=== PATIENT | male | born 1955 | race Caucasian/White ===

== ENCOUNTER 2017-04-07 01:22 | Emergency (ER) | payer OTHER ==
[~2017-04-07] VITALS: Ht 177.8 cm; Wt 118.8 kg
[~2017-04-07 01:22] MED LIST: ALBUTEROL0.09 MG/A1 INH; CLOPIDOGREL75 MG PO; FUROSEMIDE20 MG PO; HYDRALAZINE HCL25 MG PO; IMDUR60 MG PO; LANTUS SOLOS100 U/ML SC; LOSARTAN POTASS50 MG PO; MEDROL DOSEPAK1 PAC PO; METOPROLOL SUC200 M1 PO; NOVOLOG100 U/ML SC; ROBITUSSIN W/CO10 ML PO; TAMSULOSIN HYD0.4 MG PO; ZITHROMAX Z-PA250 M1 PO; ZOCOR 40MG TAB40 MG PO
--- NOTE | 2017-04-07 01:59 | ED GI/GU/ABDOMINAL COMPLAINT ---
History of Present Illness General Chief Complaint: General Adult Stated Complaint: RIGHT SIDE PAIN, NAUSEA PER PT Source: patient, family, old records Exam Limitations: no limitations Vital Signs & Intake/Output Vital Signs & Intake/Output Vital Signs Date Time Temp Pulse Resp B/P B/P Pulse O2 O2 Flow FiO2 Mean Ox Delivery Rate 04/07 0341 98.8 60 20 140/70 95 Room Air 04/07 0134 98.5 66 20 159/81 97 Room Air Allergies Coded Allergies: MDX - Morphine (SEVERE ABDOMINAL PAIN 04/30/13) SEVERE ABDOMINAL PAIN Reconcile Medications Albuterol Sulfate (Albuterol Sulfate Hfa) 0.09 MG/Actuation MIRZA 2 PUFF INH Q4- 6 PRN PRN SHORTNESS OF BREATH 90 MCG PER PUFF Amoxicillin 875 MG TABLET 1 TAB PO BID colitis Azithromycin (Zithromax Z-Peter) 250 MG CAP 1 DP PO AD BRONCHITIS 2 the first day followed by 1 for days 2-5 CLOPIDOGREL BISULFATE (Clopidogrel) 75 MG TAB 1 TAB PO DAILY BLOOD THINNER ( Reported) Furosemide 20 MG TAB 1 TAB PO DAILY WATER PILL (Reported) HYDRALAZINE HCL (Hydralazine HCl) 25 MG TAB 1 TAB PO BID HEART (Reported) Hyoscyamine Sulfate (Levsin-Sl) 0.125 MG TAB.SUBL 1-2 TAB SL Q4P PRN abdominal cramps Insulin Aspart, Recombinant (Novolog) 100 U/ML MALU 0 UNITS SC TIDAC GLUCOSE CONTROL (Reported) BLOOD SUGAR # OF UNITS < 80 NONE 80-150 NONE 151-200 1 UNIT 201-250 2 UNITS 251-300 3 UNITS 301-350 4 UNITS 351-400 6 UNITS >400 8 UNITS and call Insulin Glargine, Recombinan (Lantus Solostar) 100 U/ML MALU 15 U SC BID DIABETES (Reported) Isosorbide Mononitrate (Imdur) [address]5 TAB PO DAILY HEART (Reported) Losartan Potassium 50 MG TAB 1 TAB PO DAILY HEART (Reported) Methylprednisolone. (Medrol) 1 PAC PAC 1 TAB PO DAILY BRONCHITIS TAKE DIRECTED Metoprolol Succinate (Metoprolol Succinate XL) [address] 1 TAB PO DAILY HEART (Reported) Ondansetron (Zofran Odt) 4 MG TAB.RAPDIS 1 TAB SL TID PRN nausea Robitussin AC (Guaifenesin-Codeine Syrup) 10 ML UDC 5 ML PO Q4-6HR PRN COUGH Simvastatin (Zocor 40MG Tab) 40 MG TAB 1 TAB PO QPM CHOLESTEROL (Reported) TAMSULOSIN HCL (Tamsulosin Hydrochloride) 0.4 MG CAP 1 CAP PO DAILY PROSTATE (Reported) Triage Note: PT FROM HOME WITH C/O RIGHT SIDE ABD PAIN THAT BEGAN APPROX 2100 LAST EVENING. PT REPORTS FEELING NAUSEA BUT NO VOMITING. PT REPORTS PAIN IS 8/10. Triage Nurses Notes Reviewed? yes Onset: Evening Duration: hour(s):, constant, continues in ED Timing: recent history Quality/Severity: dullness, moderate, sharpness, severe Location: right flank Radiation: no radiation Activities at Onset: none Prior Abdominal Problems: none Past Sexual History: Unobtainable at this time Modifying Factors: Worsens With: movement, palpation. Associated Symptoms: abdominal pain, diarrhea, nausea/vomiting HPI: 18 hours prior to admission patient complaints of loose watery stool. 6 hours prior to admission patient complains of moderate to severe right flank pain nonradiating constant solution with nausea vomiting and anorexia. Past History Travel History Traveled to [place] past 21 day No Medical History Any Pertinent Medical History? see below for history Cardiovascular: CABG Musculoskeletal: B/L BKA Endocrine: diabetes History of MRSA: Yes History of VRE: No History of CDIFF: No Surgical History Surgical History: CABG Psychosocial History Who do you live with Patient and family Services at Home None What is your primary language Martiniquais Family History Hx Contributory? No Review of Systems Review of Systems Constitutional: Reports: no symptoms. EENTM: Reports: no symptoms. Respiratory: Reports: no symptoms. Cardiovascular: Reports: no symptoms. GI: Reports: see HPI, abdominal pain, bloating, nausea, vomiting. Genitourinary: Reports: no symptoms. Musculoskeletal: Reports: no symptoms. Skin: Reports: no symptoms. Neurological/Psychological: Reports: no symptoms. Hematologic/Endocrine: Reports: no symptoms. Immunologic/Allergic: Reports: no symptoms. All Other Systems: Reviewed and Negative Physical Exam Physical Exam General Appearance: well developed/nourished, alert, awake, anxious, moderate distress, severe distress, obese Head: atraumatic, normal appearance Eyes: Bilateral: normal appearance, PERRL, EOMI, normal inspection. Ears, Nose, Throat, Mouth: hearing grossly normal, moist mucous membrane Neck: normal inspection, supple, full range of motion, normal alignment Respiratory: normal breath sounds, chest non-tender, no respiratory distress, quiet respiration, lungs clear Cardiovascular: regular rate/rhythm, normal peripheral pulses, norml femoral pulses equa Peripheral Pulses: 4+ carotid (R), 4+ carotid (L) Gastrointestinal: normal bowel sounds, soft, non-tender, no organomegaly Male Genitals: normal genitalia Back: normal inspection, normal range of motion, vertebral tenderness, no vertebral tenderness Extremities: normal range of motion, no ligament instability Neurologic/Psych: no motor/sensory deficits, awake, alert, oriented x 3, normal mood/affect, slitter service and setter II-XII nml as tested Skin: intact, normal color, warm/dry Core Measures ACS in differential dx? No Sepsis Present: No Sepsis Focused Exam Completed? No Progress Differential Diagnosis: bowel obstruction, diverticulitis, pancreatitis, ureterolithiasis, UTI/pyelo Plan of Care: Orders Procedure Date/time Status URINALYSIS 04/07 155 Active LIPASE 04/07 155 Complete COMPREHENSIVE METABOLIC PANEL 04/07 155 Complete CBC WITHOUT DIFFERENTIAL 04/07 155 Complete Current Medications Sig/Duane Start time Last Medication Dose Stop Time Status Admin Ampicillin Sodium/ 3,000 MG ONCE ONE 04/07 0500 AC Sulbactam Sodium 04/07 0529 (Unasyn) Sodium Chloride 100 ML (Normal Saline 0.9%) Laboratory Tests 04/07/17 0210: Anion Gap 15, Estimated GFR 44 L, BUN/Creatinine Ratio 38.1 H, Glucose 276 H, Calcium 9.3, Total Bilirubin 0.8, AST 30, ALT 48, Alkaline Phosphatase 116, Total Protein 6.9, Albumin 3.9, Globulin 3.0, Albumin/Globulin Ratio 1.3, Lipase 79, CBC w Diff NO MAN DIFF REQ, RBC 4.87, MCV 89.9, MCH 29.7, RDW 13.4, MPV 9.8, Gran % 89.1 H, Lymphocytes % 4.6 L, Monocytes % 5.0, Eosinophils % 1.0, Basophils % 0.3, Absolute Granulocytes 8.4 H, Absolute Lymphocytes 0.4 L, Absolute Monocytes 0.5, Absolute Eosinophils 0.1, Absolute Basophils 0, PUBS MCHC 33.1 Diagnostic Imaging: Viewed by Me: CT Scan. Discussed w/RAD: CT Scan. Radiology Impression: Wall thickening with inflammation involving the ascending colon, consistent with colitis. Minimal portal venous gas seen within the left lobe of the liver. Initial ED EKG: none Departure Departure Time of Disposition: 454 Disposition: HOME OR SELF CARE Condition: Stable Clinical Impression Primary Impression: Colitis Referrals: Drake ABARCA,Jayme Adan (PCP/Family) Additional Instructions: Clear liquids in small amounts for 12-24 hours until better Departure Forms: Customer Survey General Discharge Information Prescriptions: Current Visit Scripts Amoxicillin 1 TAB PO BID #20 TAB Ondansetron (Zofran Odt) 1 TAB SL TID PRN nausea #10 TAB Hyoscyamine Sulfate (Levsin-Sl) 1-2 TAB SL Q4P PRN abdominal cramps #30 TAB
[2017-04-07 02:20] LABS: ABSOLUTE BASOPHIL COUNT 0 /CUMM (0.0-0.2); ABSOLUTE EOSINOPHIL COUNT 0.1 /CUMM (0.0-0.7); ABSOLUTE GRANULOCYTE CT 8.4 /CUMM (1.4-6.5); ABSOLUTE LYMPH COUNT 0.4 /CUMM (1.2-3.4); ABSOLUTE MONOCYTE COUNT 0.5 /CUMM (0.10-0.60); BASOPHIL % 0.3 % (0.0-2.0); HEMATOCRIT 43.8 % (42-52); MEAN CORPUSCULAR HGB 29.7 PG (27.0-31.0); MEAN CORPUSCULAR HGB CONC 33.1 G/DL (33.0-37.0); MEAN CORPUSCULAR VOLUME 89.9 FL (80.0-94.0); MEAN PLATELET VOLUME 9.8 FL (7.4-10.4); RBC DISTRIBUTION WIDTH 13.4 % (11.5-14.5); RED BLOOD CELL CT 4.87 /CUMM (4.70-6.10); WHITE BLOOD CELL COUNT 9.4 /CUMM (4.8-10.8)
[2017-04-07 02:33] LABS: GRANULOCYTE % 89.1 % (42.2-75.2); PLATELET COUNT 136 /CUMM (130-400)
--- NOTE | 2017-04-07 04:19 | CT SCAN REPORT ---
EXAMINATION: CT ABDOMEN AND PELVIS WITHOUT CONTRAST CLINICAL INFORMATION: Right flank pain. Nausea and vomiting. COMPARISON: 07/31/2012 TECHNIQUE: Multidetector volumetric imaging was performed from the superior aspect of the liver through the pubic symphysis. Sagittal and coronal reformatted images were obtained on the technologist's workstation. DLP: 1334 mGy-cm FINDINGS: LUNG BASES: Left basilar subsegmental atelectasis. Cardiac pacer leads. LIVER, GALLBLADDER, AND BILIARY TREE: The liver is normal in size, shape, and attenuation. There is gas noted in the liver with a linear appearance, extending to the periphery, suggestive of portal venous gas. No focal hepatic lesion or biliary ductal dilatation is present. Cholecystectomy. PANCREAS: Unremarkable. SPLEEN: Unremarkable. ADRENAL GLANDS: Unremarkable. KIDNEYS AND URETERS: The kidneys are normal in size shape and position. No hydronephrosis or nephrolithiasis. Bilateral vascular calcifications are BLADDER: Unremarkable. GASTROINTESTINAL TRACT: The stomach is unremarkable. The small bowel is normal in caliber without obstruction. There is a segment of wall thickening involving the ascending colon. There is adjacent inflammatory change. No small bowel obstruction. The appendix is likely absent. ABDOMINAL WALL: No significant hernia is appreciated. LYMPH NODES: Normal. VASCULAR: Normal caliber aorta. Mild atherosclerotic calcifications. PELVIC VISCERA: The prostate and seminal vesicles are unremarkable. OSSEOUS STRUCTURES: No acute or suspicious osseous abnormality. IMPRESSION: Wall thickening with inflammation involving the ascending colon, consistent with colitis. Minimal portal venous gas seen within the left lobe of the liver.
[2017-04-07] MEDS ORDERED: LEVSIN-SL0.125 MG SL (04:59)
[2017-04-07] MEDS ORDERED: ZOFRAN ODT4 M1 SL (04:59)
[2017-04-07] MEDS ORDERED: AMOXICILLIN875 M1 PO (04:59)
[2017-04-07] MEDS ORDERED: METOPROLOL SUC200 M2 PO (06:27)
[2017-04-07 06:28] VITALS: BP 138/72
== END 2017-04-07 06:29 ==
LOC: ERH 01:22
PROVIDERS: Emergency Medicine
DX: K52.9 Noninfective gastroenteritis and colitis, unspecified (principal)
CPT/HCPCS: 74176; 96361; 96374; 96375; J0131; J2765